=== PATIENT | female | born 1995 | race Caucasian/White ===

== ENCOUNTER 2017-04-25 19:31 | Emergency (ER) | payer OTHER ==
[~2017-04-25] VITALS: Ht 162.6 cm; Wt 79.2 kg
[2017-04-25 19:35] VITALS: Ht 162.6 cm; Wt 79.2 kg
[2017-04-25] MEDS ORDERED: ACYC400T2 PO (20:21)
[2017-04-25] MEDS ORDERED: IBUP400T22 PO (20:21)
--- NOTE | 2017-04-25 20:24 | ERD ---
ER Documentation Chief Complaint Chief Complaint lump underneath her chin HPI 21-year-old female comes into the emergency department with swelling underneath her chin that started 2 days ago. Patient has had a 3 day history of a cold sore on her right lower lip, she has had this before. She does states that there is swelling just underneath the chin, that is tender. She has not had any fevers or chills, sore throat, congestion, dental pain. She has no trouble swallowing, voice changes, drooling. ROS All systems reviewed and are negative except as per history of present illness. Medications Home Meds Active Scripts Acyclovir* (Acyclovir*) 400 Mg Tablet, 400 MG PO TID for 5 Days, TAB Prov:MANUEL MCCOY PA-C 04/25/17 Ibuprofen* (Motrin*) 400 Mg Tab, 400 MG PO Q6H Y for PAIN, #20 TAB Prov:MANUEL MCCOY PA-C 04/25/17 Allergies Allergies: Coded Allergies: No Known Allergy (Unverified , 04/25/17) PMhx/Soc Hx Alcohol Use: No Hx Substance Use: No Hx Tobacco Use: No Physical Exam Vitals Vital Signs Date Time Temp Pulse Resp B/P Pulse Ox O2 Delivery O2 Flow Rate FiO2 04/25/17 19:35 97.3 63 20 125/68 100 Physical Exam General: Well-developed, well-nourished. The patient appears in no acute distress. HEENT: Head is normocephalic, atraumatic. No scleral icterus. Pupils are equal , round, and reactive. Oral mucous membranes are moist. No pharyngeal erythema. Tooth vesicles seen on the right lower lip. Submental notice swollen , tender, there is no fluctuance, it is mobile. Neck: Supple. Nontender. Lungs: Clear to auscultation. Normal air movement. Heart: Regular rate and rhythm. S1 and S2 are normal. No murmurs, gallops, or rubs. Abdomen: Soft, nontender, nondistended. Bowel sounds are normoactive. Extremities: No clubbing or cyanosis. Normal pulses. Moving extremities x 4. No weakness. Neurologic: Alert and oriented 3. No focal deficits. Skin: Normal turgor. No rash or lesions. Procedures/MDM 21-year-old female has a submental lymph node swelling, no evidence of mass, abscess, cellulitis. Is likely reactive from the HSV infection seen on the left , the patient will be given acyclovir and ibuprofen. Departure Diagnosis: Primary Impression: HSV infection Additional Impression: Enlarged submental lymph node Condition: Good Patient Instructions: Lymphedema, Herpes Labialis, Hsv: Type I MANUEL MCCOY PA-C Apr 25, 2017 20:24
== END 2017-04-25 20:37 | disposition home or self-care (01) ==
LOC: FTE 19:31
DX: B00.9 Herpesviral infection, unspecified (principal); R59.0 Localized enlarged lymph nodes
CPT/HCPCS: 99283